=== PATIENT | female | born 1995 | race Caucasian/White ===

== ENCOUNTER 2017-08-23 14:09 | Emergency (ER) | payer OTHER ==
[~2017-08-23] VITALS: Ht 160 cm; Wt 56.7 kg
[~2017-08-23 14:09] MED LIST: ELINEST1 EACH PO; MULTIVITAMINS1 EAC7 PO; TESSALON PERLE100 MG PO
--- OUTSIDE RECORDS SUMMARY | 2017-08-23 14:41 | XMS | Clinical Summary ---
Demographics + + + | Address | [address] | | | [place] [address] | + + + | Home Phone | | + + + | Preferred Language | Unknown | + + + | Marital Status | Single | + + + | Latter Day Affiliation | Unknown | + + + | Race | Unknown | + + + | Ethnic Group | Unknown | + + + Author + + + | Author | [facility] | | | and [place] | + + + | Organization | [facility] | | | and [place] | + + + | Address | Unknown | + + + | Phone | Unavailable | + + + Support + + + + + | Name | Relationship | Address | Phone | + + + + + | Renu Briceno | ECON | [address] | | | | | [place] | | | | | [address] | | + + + + + Care Team Providers + +------+ + | Care Die Lay Out Worker Name | Role | Phone | + +------+ + | Eduard Rockwell MD | PP | | + +------+ + Allergies + + + +--------+ + | Active Allergy | Reactions | Severity | Noted | Comments | | | | | Date | | + + + +--------+ + | Amoxicillin | Rash | Low | | | + + + +--------+ + | Penicillins | Rash | Low | | | + + + +--------+ + Current Medications + + + +---------+------+------+-------+ | Prescription | Sig. | Disp. | Refills | Star | End | Statu | | | | | | t | Date | s | | | | | | Date | | | + + + +---------+------+------+-------+ | busPIRone (BUSPAR) | take 1 tablet by | | 0 | 02/0 | | Activ | | 5 mg tablet | mouth twice a day | | | 8/20 | | e | | | once daily for 1 | | | 18 | | | | | week - IF LIT... | | | | | | | | (REFER TO | | | | | | | | PRESCRIPTION NOTES). | | | | | | + + + +---------+------+------+-------+ | | Take 1 tablet by | 84 each | 3 | 02/1 | | Activ | | levonorgestrel-ethin | mouth Daily. 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 | abdominal pain | | | | | | (Primary Dx) | +--------+ + + + + | 07/12/ | Office | | Carol, | Patient left after | | 2018 | Visit | | SHADI Gutierrez | triage (Primary Dx) | +--------+ + + + + | 07/12/ | Telephone | | Arin Franks, | Appointment Question | | 2017 | | | GEOPHYSICAL 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 CHIEF | | +--------+ + + + + | 06/28/ | Office | | Brenna, | Encounter for other | | 2017 | Visit | | Jenn Fonseca NP | contraceptive | | | | | | management (Primary | | | | | | Dx) | +--------+ + + + + | 05/30/ | Telephone | | Eduard Rockwell | Follow-up | | 2017 | | | MD Andrae | | +--------+ + + + + | 05/28/ | Emergency | | Randy Mcneal, | Acute non-recurrent | | 2017 | | | ARCHITECTURE CONSULTANT | maxillary sinusitis | | | | | | (Primary Dx); Viral | | | | | | gastroenteritis | +--------+ + + + + | 05/25/ | Office | | Carol, | Viral | | 2018 | Visit | | Matt BONE PLANT SUPERVISOR | gastroenteritis | | | | | | (Primary Dx); Viral | | | | | | URI | +--------+ + + + + from Last 3 Months Family History + + +------+ + | Medical History | Relation | Name | Comments | + + +------+ + | No Known Problems | Father | | | + + +------+ + | Cancer | Maternal | | Skin Cancer | | | Grandfath | | | | | er | | | + + +------+ + | No Known Problems | Maternal | | | | | Grandmoth | | | | | er | | | + + +------+ + | No Known Problems | Mother | | | + + +------+ + | No Known Problems | Paternal | | | | | Grandfath | | | | | er | | | + + +------+ + | No Known Problems | Paternal | | | | | Grandmoth | | | | | er | | | + + +------+ + | No Known Problems | Paternal | | | | | Uncle | | | + + +------+ + | No Known Problems | Sister | | | + + +------+ + + +------+--------+ + | Relation | Name | Status | Comments | + +------+--------+ + | Father | | Alive | | + +------+--------+ + | Maternal Grandfather | | Alive | | + +------+--------+ + | Maternal Grandmother | | Alive | | + +------+--------+ + | Mother | | Alive | | + +------+--------+ + | Paternal Grandfather | | Alive | | + +------+--------+ + | Paternal Grandmother | | Alive | | + +------+--------+ + | Paternal Uncle | | Alive | | + +------+--------+ + | Sister | | Alive | | + +------+--------+ + Social History + +-------+ +--------+------+ | Tobacco Use | Types | Packs/Day | Years | Date | | | | | Used | | + +-------+ +--------+------+ | Never Smoker | | | | | + +-------+ +--------+------+ + +---+---+---+ | Smokeless Tobacco: | | | | | Never Used | | | | + +---+---+---+ + + | Tobacco Cessation: Counseling Given: No | + + + + +---------+ + | Alcohol Use | Drinks/We | oz/Week | Comments | | | ek | | | + + +---------+ + | No | | | | + + +---------+ + + + + | Sex Assigned at | Date Recorded | | | | + + + | Not on file | | + + + Last Filed Vital Signs + + + + | Vital Sign | Reading | Time Taken | + + + + | Blood Pressure | 98/45 | 07/12/20171418 PST | + + + + | Pulse | 82 | 07/12/20171417 PST | + + + + | Temperature | 36.6 C (97.9 F) | 07/12/20175 PST | + + + + | Respiratory Rate | 18 | 07/12/20171035 PST | + + + + | Oxygen Saturation | 83% | 07/12/20171417 PST | + + + + | Inhaled Oxygen | - | - | | Concentration | | | + + + + | Weight | 56.7 kg (125 lb) | 07/12/20171035 PST | + + + + | Height | 160 cm (5' 3") | 07/12/20171035 PST | + + + + | Body Mass Index | 22.14 | 07/12/20171035 PST | + + + + Plan of Treatment + + + + + | Health Maintenance | Due Date | Last Done | Comments | + + + + + | Vaccine: HPV (1 of 3 | | | | | - Female 3 Dose | 8 | | | | Series) | | | | + + + + + | Vaccine: | | | | | Dtap/Tdap/Td (1 - | 6 | | | | Tdap) | | | | + + + + + | Vaccine: Influenza | | | | | (Season Ended) | 8 | | | + + + + + Results US Abdomen Limited (07/12/2017 1331) + + | Impressions | + + | IMPRESSION: The appendix is not identified. Acute process involving the appendix | | cannot be excluded. Dictated by: Gurdeep Vargas | + + + + | Narrative | + + | EXAMINATION: US ABDOMEN LIMITED right lower quadrant HISTORY: ABDOMINAL PAIN | | COMPARISON STUDY: None FINDINGS: An appendix is not identified. No right lower | | quadrant adenopathy is demonstrated. No fluid collections right lower quadrant | + + + + | Procedure Note | + + | Harlan, Rad Results In - 07/12/2017 1404 PST EXAMINATION:US ABDOMEN LIMITED right lower | | quadrantHISTORY:ABDOMINAL PAINCOMPARISON STUDY:NoneFINDINGS:An appendix is not | | identified. No right lower quadrant adenopathy is demonstrated. No fluid collections | | right lower quadrantIMPRESSION: IMPRESSION:The appendix is not identified. Acute | | process involving the appendix cannot be excluded.Dictated by: Gurdeep | | Sam | |COMPARISON STUDY: | |None | | | |FINDINGS: | |An appendix is not identified. No right lower quadrant adenopathy is demonstrated. No flu id collections right lower quadrant | | | |IMPRESSION: | |IMPRESSION: | |The appendix is not identified. Acute process involving the appendix cannot be excluded. | | | |Dictated by: Gurdeep Vargas | | | | | + + Urinalysis with Microscopic with Culture if Indicated (07/12/2017 1142) + + + + | Component | Value | Ref Range | + + + + | COLOR | Yellow | Pale Yellow, Yellow | + + + + | CLARITY | Clear | Clear | + + + + | PH UA | 6.5 | 5.0 - 7.0 | + + + + | Specific [place] | 1.015 | 1.003 - 1.030 | + + + + | PROTEIN UA | Negative | Negative | + + + + | BLOOD UA | 50 colton/uL (A) | Negative | + + + + | GLUCOSE UA | Normal | Normal | + + + + | KETONES UA | Negative | Negative | + + + + | BILIRUBIN UA | Negative | Negative | + + + + | NITRITE UA | Negative | Negative | + + + + | LEUKOCYTES ESTERASE | Negative | Negative | | UA | | | + + + + | UROBILINOGEN UA | Normal | 0-1.0 mg/dL | + + + + | WBC UA | 0-2 | <=5 /HPF | + + + + | RBC UA | None Seen | <=5 /HPF | + + + + | SQUAMOUS EPITHELIAL | Few (A) | None Seen /LPF | | UA | | | + + + + | BACTERIA UA | Trace (A) | None Seen /HPF | + + + + | MUCUS UA | Few (A) | None seen /LPF | + + + + | URINE COMMENT | Urine Culture Not Indicated | | + + + + + + + | Specimen | Performing Laboratory | + + + | Urine - Urine, clean | [facility] [address] [facility], | | catch | [place] [id number] | + + + , Urine, Qual (07/12/2017 1142) + + + + | Component | Value | Ref Range | + + + + | HCG SCREEN, URINE | Negative | Negative | + + + + + + + | Specimen | Performing Laboratory | + + + | Urine - Urine, clean | [facility] [address] [facility] | | catch | [place] [id number] | + + + CBC with Differential (07/12/20171119) + + + + | Component | Value | Ref Range | + + + + | WBC | 4.6 | 4.3 - 10.4 K/uL | + + + + | RBC | 4.60 | 4.12 - 5.30 M/uL | + + + + | Hgb | 12.7 | 12.4 - 15.7 g/dL | + + + + | Hct | 39.1 | 37.7 - 47.0 % | + + + + | MCV | 85.0 | 82.0 - 97.0 fL | + + + + | MCH | 27.6 | 27.1 - 32.3 pg | + + + + | MCHC | 32.5 | 32.0 - 36.9 g/dL | + + + + | RDW-CV | 13.2 | 0.0 - 17.0 % | + + + + | Platelet Count | 341 | 150 - 450 K/uL | + + + + | MPV | 10.6 | 9.4 - 12.3 fL | + + + + | % Neutrophils | 46.6 | 42.0 - 76.0 % | + + + + | % Lymphocytes | 37.4 | 20.0 - 40.0 % | + + + + | % Monocytes | 9.1 | 0.0 - 12.0 % | + + + + | % Eosinophils | 5.4 | 0.0 - 7.0 % | + + + + | % Basophils | 1.5 | 0.0 - 2.0 % | + + + + | % Immature | 0.0 | 0.0 - 0.5 % | | granulocytes | | | + + + + | Absolute Neutrophils | 2.14 (L) | 2.50 - 8.50 K/uL | + + + + | Absolute Lymphocytes | 1.72 | 1.00 - 3.80 K/uL | + + + + | Absolute Monocytes | 0.42 | 0.00 - 1.60 K/uL | + + + + | Absolute Eosinophils | 0.25 | 0.00 - 0.70 K/uL | + + + + | Absolute Basophils | 0.07 | 0.00 - 0.20 K/uL | + + + + | Absolute Imm. | 0.00 | 0.00 - 0.15 K/UL | | Granulocytes | | | + + + + | nRBC | 0 | 0 - 0 per 100 WBC's | + + + + | NRBC ABS | 0.00 | 0.00 - 0.01 K/UL | + + + + + + + | Specimen | Performing Laboratory | + + + | Blood | [facility] [address] [place], | | | [place] [address] | + + + Lipase (07/12/2017 1120) + +-------+ + | Component | Value | Ref Range | + +-------+ + | LIPASE | 187 | 73 - 393 U/L | + +-------+ + + + + | Specimen | Performing Laboratory | + + + | Blood | [facility] [address] [place], | | | [place] [address] | + + + Comprehensive Metabolic Panel (07/12/2017 1120) + + + + | Component | Value | Ref Range | + + + + | NA | 141 | 132 - 143 mmol/L | + + + + | K | 3.7 | 3.3 - 4.9 mmol/L | + + + + | CL | 106 | 95 - 108 mmol/L | + + + + | CO2 | 26 | 23 - 34 mmol/L | + + + + | ANION GAP | 9 | 7 - 16 mmol/L | + + + + | GLUCOSE | 84 | 70 - 110 mg/dL | + + + + | BUN | 16 | 5 - 26 mg/dL | + + + + | Creatinine, | 0.62 | 0.60 - 1.30 mg/dL | | Serum/Plasma | | | + + + + | eGFR if not | >60Comment: GLOMERULAR FILTRATION | >=60 mL/min/1.73m2 | | THAI | RATE,ESTIMATED mL/min/1.85l4Kqig than | | | | 60 Chronic kidney disease,if found over | | | | a 3-month period.Less than 15 Kidney | | | | failureFor Americans,multiply the | | | | calculated GFR by 1.21. | | | | | | | | | | + + + + | CALCIUM | 8.4 | 8.3 - 10.0 mg/dL | + + + + | ALBUMIN | 3.2 | 3.0 - 4.5 g/dL | + + + + | BILIRUBIN TOTAL | 0.3 | 0.0 - 1.2 mg/dL | + + + + | Total protein | 7.0 | 6.6 - 8.5 g/dL | + + + + | AST | 18 | 0 - 38 U/L | + + + + | ALT | 22 | 14 - 59 U/L | + + + + | ALK PHOS | 80 | 46 - 116 U/L | + + + + | GLOBULIN | 3.8 | g/dL | + + + + | Albumin/Globulin | 0.8 | | | ratio | | | + + + + | BUN/CREA | 25.8 (H) | 7.0 - 24.0 | + + + + + + + | Specimen | Performing Laboratory | + + + | Blood | [facility] [address] [place], | | | [place] [address] | + + + from Last 3 Months Insurance + +--------+ +------+ +---------+ | Payer | Benefi | Subscriber | Type | Phone | Address | | | t Plan | ID | | | | | | / | | | | | | | Group | | | | | + +--------+ +------+ +---------+ | [employer] | PACIFI | xxxxxxxxxxx | PPO | [phone] | | | CSOURC | | | [phone] | | | | E | | | | | | | FIRST | | | | | | | CHOICE | | | | | + +--------+ +------+ +---------+ + +--------+ +--------+ + + | Guarantor Name | Accoun | Relation to | Date | Phone | Billing Address | | | t Type | Patient | of | | | | | | | | | | + +--------+ +--------+ + + | FABRICE BRICENO | Person | Self [birth year] | Home: | [address] | | | [place] | | 1994 | [phone] | [place] [address] | | | joselo | | | [phone] | | + +--------+ +--------+ + +
--- OUTSIDE RECORDS SUMMARY | 2017-08-23 14:41 | XMS | Encounter Summary ---
Demographics + + + | Address | [address] | | | [place] [address] | + + + | Home Phone | | + + + | Preferred Language | Unknown | + + + | Marital Status | Single | + + + | Presybeterian Affiliation | Unknown | + + + | Race | Unknown | + + + | Ethnic Group | Unknown | + + + Author + + + | Author | [facility] | | | and [place] | + + + | Organization | [facility] | | | and [place] | + + + | Address | Unknown | + + + | Phone | Unavailable | + + + Support + + + + + | Name | Relationship | Address | Phone | + + + + + | Renu Benoit | ECON | [address] | | | | | [place] | | | | | [address] | | + + + + + Care Team Providers + +------+ + | Care Office Technician Name | Role | Phone | + +------+ + | Eduard Rockwell MD | PCP | | + +------+ + Reason for Visit + + + | Reason | Comments | + + + | Appointment Question | | + + + Encounter Details +--------+ + + + + | Date | Type | Department | Care Team | Description | +--------+ + + + + | 07/12/ | Telephone | [facility] | Arin Franks, | Appointment Question | | 2018 | | [facility] | 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 | | | | | CENTER [address] | | | | | | [place] | | | | | | [address] | | | | | | [phone] | | | +--------+ + + + + Social History + +-------+ +--------+------+ | Tobacco Use | Types | Packs/Day | Years | Date | | | | | Used | | + +-------+ +--------+------+ | Never Smoker | | | | | + +-------+ +--------+------+ + +---+---+---+ | Smokeless Tobacco: | | | | | Never Used | | | | + +---+---+---+ + + +---------+ + | Alcohol Use | Drinks/We | oz/Week | Comments | | | ek | | | + + +---------+ + | No | | | | + + +---------+ + + + + | Sex Assigned at | Date Recorded | | | | + + + | Not on file | | + + + as of this encounter Plan of Treatment Not on fileas of this encounter Visit Diagnoses Not on filein this encounter"
--- OUTSIDE RECORDS SUMMARY | 2017-08-23 14:50 | XMS | Encounter Summary ---
Demographics + + + | Address | [address] | | | [place] [address] | + + + | Home Phone | | + + + | Preferred Language | Unknown | + + + | Marital Status | Single | + + + | Voodoo Affiliation | Unknown | + + + | Race | Unknown | + + + | Ethnic Group | Unknown | + + + Author + + + | Author | [facility] | | | and [place] | + + + | Organization | [facility] | | | and [place] | + + + | Address | Unknown | + + + | Phone | Unavailable | + + + Support + + + + + | Name | Relationship | Address | Phone | + + + + + | Renu Benoit | ECON | [address] | | | | | [place] | | | | | [address] | | + + + + + Care Team Providers + +------+ + | Care Counter Waiter Name | Role | Phone | + +------+ + | Eduard Rockwell MD | PCP | | + +------+ + Reason for Visit + + + | Reason | Comments | + + + | Abdominal Pain | | + + + Encounter Details +--------+ + + + + | Date | Type | Department | Care Team | Description | +--------+ + + + + | 07/12/ | Emergency | [facility] | Randy Mcneal, | Right lower quadrant | | 2018 | | HOSPITAL [facility] | EXTRUSION UTILITY WORKER [address] | abdominal pain | | | | CENTER [address] | [place] | (Primary Dx) | | | | [place] | [address] | | | | | [address] | | | | | | [phone] | | | +--------+ + + + [...] + + + as of this encounter Last Filed Vital Signs + + + + | Vital Sign | Reading | Time Taken | + + + + | Blood Pressure | 98/45 | 07/12/2017 1419 PST | + + + + | Pulse | 82 | 07/12/2017 1418 PST | + + + + | Temperature | 36.6 C (97.9 F) | 07/12/2017 1445 PST | + + + + | Respiratory Rate | 18 | 07/12/2017 1036 PST | + + + + | Oxygen Saturation | 83% | 07/12/2017 1418 PST | + + + + | Inhaled Oxygen | - | - | | Concentration | | | + + + + | Weight | 56.7 kg (125 lb) | 07/12/2017 1036 PST | + + + + | Height | 160 cm (5' 3") | 07/12/2017 1036 PST | + + + + | Body Mass Index | 22.14 | 07/12/2017 1036 PST | + + + + in this encounter Discharge Instructions Randy Mcneal NP - 07/12/2017Follow-up with your primary care provider in 1-2 days if n o improvement over next week. . Watch your symptoms carefully over the next 2-3 days and pay special attention to new and d ifferent pains, fevers, vomiting, notice blood in your vomiting, urine or stool. If any of this should occur you should return to the emergency department immediately for re-evaluatio n. The following attachments cannot be sent through Care Everywhere.Abdominal Pain, Adult (Eng eloise)in this encounter Medications at Time of Discharge + + + +---------+ + + | Medication | Sig. | Disp. | Refills | Start | End Date | | | | | | Date | | + + + +---------+ + + | busPIRone (BUSPAR) | take 1 tablet by | | 0 | 06/24/19 | | | 5 mg tablet | mouth twice a day | | | 18 | | | | once daily for 1 | | | | | | | week - IF LIT... | | | | | | | (REFER TO | | | | | | | PRESCRIPTION NOTES). | | | | | + + + +---------+ + + | | Take 1 tablet by | 84 each | 3 | 06/28/19 | | | levonorgestrel-ethin | mouth Daily. | | | 18 | | | yl estradiol | | | | | | | (SEASONIQUE) | | | | | | | 0.15-0.03 &0.01 MG | | | | | | | TABS | | | | | | + + + +---------+ + + as of this encounter Plan of Treatment Not on fileas of this encounter Results US Abdomen Limited (07/12/2017 1331) + [...] | | | | | + + , Urine, Qual (07/12/2017 1142) + + + + | Component | Value | Ref Range | + + + + | HCG SCREEN, URINE | Negative | Negative | + + + + + + + | Specimen | Performing Laboratory | + + + | Urine - Urine, clean | [facility] [address] [facility] [place], | | catch | [place] [address] | + + + Urinalysis with Microscopic with Culture [...] | + + + + | Specific [place] | 1.015 | 1.003 - 1.030 | [...] + | Urine - Urine, clean | [facility] [address] [facility] [facility] [facility] | | catch | [place] [address] | + + + Lipase (07/12/20171119) + +-------+ + | Component | Value | Ref Range | + +-------+ + | LIPASE | 187 | 73 - 393 U/L | + +-------+ + + + + | Specimen | Performing Laboratory | + + + | Blood | [facility] [address] [place], | | | [place] [address] | + + + Comprehensive Metabolic Panel [...] GLOMERULAR FILTRATION | >=60 mL/min/1.73m2 | | [place] | RATE,ESTIMATED mL/min/1.12e7Fgbo than | | | | 60 Chronic [...] | + + + | Blood | [facility] [address] [facility] | | | [place] [address] | + + + CBC with Differential [...] | + + + | Blood | [facility] [address] [place], | | | [place] [address] | + + + in this encounter Visit Diagnoses + + | Diagnosis | + + | Right lower quadrant abdominal pain - Primary | + + | Abdominal pain, right lower quadrant | + +
--- OUTSIDE RECORDS SUMMARY | 2017-08-23 14:50 | XMS | Encounter Summary ---
Demographics + + + | Address | [address] | | | [place] [address] | + + + | Home Phone | | + + + | Preferred Language | Unknown | + + + | Marital Status | Single | + + + | Judaism Affiliation | Unknown | + + + | Race | Unknown | + + + | Ethnic Group | Unknown | + + + Author + + + | Author | [facility] | | | and [place] | + + + | Organization | [facility] | | | and [place] | + + + | Address | Unknown | + + + | Phone | Unavailable | + + + Support + + + + + | Name | Relationship | Address | Phone | + + + + + | Renu Benoit | ECON | [address] | | | | | [place] | | | | | [address] | | + + + + + Care Team Providers + +------+ + | Care Salesperson Flying Squad Name | Role | Phone | + [...] | 2018 | | HOSPITAL EM[facility] | PRINTED CIRCUIT DESIGNER | | | | | CENTER [address] | | | | | | [place] | | | | | | [address] | | | | | | [phone] | | | +--------+ + + + [...]
--- OUTSIDE RECORDS SUMMARY | 2017-08-23 14:50 | XMS | Encounter Summary ---
Demographics + + + | Address | [address] | | | [place] [address] | + + + | Home Phone | | + + + | Preferred Language | Unknown | + + + | Marital Status | Single | + + + | Oriental Orthodox Affiliation | Unknown | + + + | Race | Unknown | + + + | Ethnic Group | Unknown | + + + Author + + + | Author | [facility] | | | and [place] | + + + | Organization | [facility] | | | and [place] | + + + | Address | Unknown | + + + | Phone | Unavailable | + + + Support + + + + + | Name | Relationship | Address | Phone | + + + + + | Renu Benoit | ECON | [address] | | | | | [place] | | | | | [address] | | + + + + + Care Team Providers + +------+ + | Care Manual Arts Therapist Name | Role | Phone | + +------+ + | Unknown, Doctor | PCP | Unavailable | + +------+ + Reason for Visit + + + | Reason | Comments | + + + | Abdominal Pain | x1wk | + + + Encounter Details +--------+---------+ + + + | Date | Type | Department | Care Team | Description | +--------+---------+ + + + | 05/25/ | Office | [facility] | Carol, | Viral | | 2018 | Visit | [facility] | Matt, 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 [address] | gastroenteritis | | | | [facility] | [address] [facility], | (Primary Dx); Viral | | | | [address] [facility], | [place] [address] | URI | | | | [place] [address] | [phone] | | | | | [phone] | | | +--------+---------+ + + + Social History + +-------+ +--------+------+ | Tobacco Use | Types | Packs/Day | Years | Date | | | | | Used | | + +-------+ +--------+------+ | Never Smoker | | | | | + +-------+ +--------+------+ + +---+---+---+ | Smokeless Tobacco: | | | | | Never Used | | | | + +---+---+---+ + + + | Sex Assigned at | Date Recorded | | | | + + + | Not on file | | + + + as of this encounter Last Filed Vital Signs + + + + | Vital Sign | Reading | Time Taken | + + + + | Blood Pressure | 101/62 | 05/25/20171540 PST | + + + + | Pulse | 81 | 05/25/20171540 PST | + + + + | Temperature | 36.3 C (97.3 F) | 05/25/20171540 PST | + + + + | Respiratory Rate | 16 | 05/25/20171540 PST | + + + + | Oxygen Saturation | 98% | 05/25/20171540 PST | + + + + | Inhaled Oxygen | - | - | | Concentration | | | + + + + | Weight | - | - | + + + + | Height | - | - | + + + + | Body Mass Index | - | - | + + + + in this encounter Instructions Patient Instructions - Matt Medina FNP - 05/25/2017 1530 PST Viral Gastroenteritis (Adult) Gastroenteritis is commonly called the stomach flu. It is most often caused by a virus that affects the stomach and intestinal tract and usually lasts from 2 to 7 days. Common viruses causing gastroenteritis include norovirus, rotavirus, and hepatitis A. Non-viral causes of gastroenteritis include bacteria, parasites, and toxins. The danger from repeated vomiting or diarrhea is dehydration. This is the loss of toomuch fluid from the body. When this occurs, body fluids must be replaced. Antibiotics do not hel p with this illness because it is usually viral.Simple home treatment will be helpful. Symptoms of viral gastroenteritis may include: Watery, loose stools Stomach pain or abdominal cramps Fever and chills Nausea and vomiting Loss of bowel control Headache Home care Gastroenteritis is transmitted by contact with the stool or vomit of an infected person. Th is can occur from person to person or from contact with a contaminated surface. Follow these guidelines when caring for yourself at home: If symptoms are severe, rest at home for the next 24 hours or until you are feeling bett er. Wash your hands with soap and water or use alcohol-based collaborating supervising physician to prevent the spread of infection. Wash your hands after touching anyone who is sick. Wash your hands or use alcohol-based collaborating supervising physician after using the toilet and before meals. Clean the toilet after each use. Remember these tips when preparing food: People with diarrhea should not prepare or serve foodto others. When preparing foods, wash your hands before and after. Wash your hands after using cutting boards, countertops, knives, or utensilsthat have been in contact with raw food. Keep uncooked meats away from cooked and ghpyz-zw-jte foods. Medicine You may use acetaminophen or NSAID medicines like ibuprofen or naproxen to control fever un less another medicine was given. If you have chronic liver or kidney disease, talk with your healthcare provider before using these medicines. Also talk with your provider if you'veh ad a stomach ulcer orgastrointestinal bleeding. Don't give aspirinto anyone under 18 yea rs of age who is ill with a fever. It may cause severe liver damage. Don't use NSAIDS is you are already taking one for another condition (like arthritis) or are on aspirin (such as fo r heart disease or after a stroke). If medicine for vomiting or diarrhea are prescribed, take these only as directed. Do not ta ke qnuf-mni-ksfjhgs medicines for vomiting or diarrhea unless instructed by your healthcare provider. Diet Follow these guidelines forfood: Water and liquids are important so you don't get dehydrated. Drink a small amount at a t edwina or suck on ice chips if you are vomiting. If you eat, avoid fatty, greasy, spicy, or fried foods. Don't eat dairy if you have diarrhea. This can make diarrhea worse. Avoid tobacco, alcohol, and caffeine which may worsen symptoms. During the first 24 hours (the first full day), follow the diet below: Beverages. Sports drinks, soft drinks without caffeine, eliceo bereket, mineral water (plain or flavored), decaffeinated tea and coffee. If you are very dehydrated, sports drinks aren' t a good choice. They have too much sugar and not enough electrolytes. In this case, commerc ially available products called oral rehydration solutions, are best. Soups. Eat clear broth, consomm, and bouillon. Desserts. Eat gelatin, popsicles, and fruit juice bars. During the next 24 hours (the second day), you may add the following to the above: Hot cereal, plain toast, bread, rolls, and crackers Plain noodles, rice, mashed potatoes, chicken noodle or rice soup Unsweetened canned fruit (avoid pineapple), bananas Limit fat intake to less than 15 grams per day. Do this by avoiding margarine, butter, o ils, mayonnaise, sauces, gravies, fried foods, peanut butter, meat, poultry, and fish. Limit fiber and avoid raw or cooked vegetables, fresh fruits (except bananas), and bran cereals. Limit caffeine and chocolate. Don't use spices or seasonings other than salt. Limit dairy products. Avoid alcohol. During the next 24 hours: Gradually resume a normal diet as you feel better and your symptoms improve. If at any time it starts getting worse again, go back to clear liquids until you feel be tter. Follow-up care Follow up with your healthcare providerjeffrey advised. Call your provider if you don't ge t better within 24 hours or if diarrhea lasts more than a week. Also follow up if you are un able to keep down liquids and get dehydrated. If a stool (diarrhea) sample was taken, call a s directed for the results. Call 911 Call 911 if any of these occur: Trouble breathing Chest pain Confused Severe drowsiness or trouble awakening Fainting or loss of consciousness Rapid heart rate Seizure Stiff neck When to seek medical advice Call your healthcare provider right away if any of these occur: Abdominal pain that gets worse Continued vomiting (unable to keep liquids down) Frequent diarrhea (more than 5 times a day) Blood in vomit or stool (black or red color) Dark urine, reduced urine output, or extreme thirst Weakness or dizziness Drowsiness Fever of 100.4F (38C) oral or higher that does not get better with fever medicine New rash Date Last Reviewed: 05/19/201519992056-7917 [employer]. [address] [place] [address]. All righ ts reserved. This information is not intended as a substitute for professional medical care. Always follow your healthcare professional's instructions. in this encounter Progress Notes Matt Medina, SHADI - 05/25/2017 1530 PSTFormatting of this note may be different from the original. Subjective: Patient ID: Michelle Benoit is a 22 y.o. female. GI Problem This is a new problem. The current episode started in the past 7 days. The problem occurs c onstantly. The problem has been waxing and waning. Associated symptoms include abdominal fransico n (cramping sensation), congestion, coughing, fatigue, headaches, nausea (intermittently) an d a sore throat (in the morning). Pertinent negatives include no anorexia, arthralgias, osman ge in bowel habit, chest pain, chills, diaphoresis, fever, joint swelling, myalgias, neck pa in, numbness, rash, swollen glands, urinary symptoms, vertigo, visual change, vomiting or we akness. Nothing aggravates the symptoms. She has tried NSAIDs (antihistamines, ibuprofen, te a) for the symptoms. The treatment provided mild relief. No past medical history on file. There are no active problems to display for this patient. No past surgical history on file. Current Outpatient Prescriptions Medication Sig Dispense Refill CAMRESE LO 0.1-0.02 & 0.01 MG TABS Take 1 tablet by mouth Daily. 0 No current facility-administered medications for this visit. Allergies Allergen Reactions Amoxicillin Rash Penicillins Rash Review of Systems Constitutional: Positive for fatigue. Negative for chills, diaphoresis and fever. HENT: Positive for congestion, postnasal drip, rhinorrhea, sinus pain, sinus pressure and s ore throat (in the morning). Eyes: Negative. Respiratory: Positive for cough. Cardiovascular: Negative. Negative for chest pain. Gastrointestinal: Positive for abdominal pain (cramping sensation) and nausea (intermittent ly). Negative for abdominal distention, anal bleeding, anorexia, blood in stool, change in b owel habit, constipation, diarrhea, rectal pain and vomiting. Endocrine: Negative. Genitourinary: Negative. Musculoskeletal: Negative. Negative for arthralgias, joint swelling, myalgias and neck fransico n. Skin: Negative. Negative for rash. Allergic/Immunologic: Negative. Neurological: Positive for headaches. Negative for vertigo, weakness and numbness. Hematological: Negative. Psychiatric/Behavioral: Negative. Objective: BP 101/62 | Pulse 81 | Temp 36.3 C (97.3 F) (Temporal) | Resp 16 | SpO2 98% | Destiny stfeeding? No Physical Exam Constitutional: Vital signs are normal. She is cooperative. HENT: Right Ear: Tympanic membrane and ear canal normal. Left Ear: Tympanic membrane and ear canal normal. Nose: Mucosal edema and rhinorrhea (clear) present. Mouth/Throat: Oropharynx is clear and moist. No posterior oropharyngeal erythema. Cardiovascular: Normal rate and regular rhythm. Pulmonary/Chest: Effort normal and breath sounds normal. Abdominal: Soft. Normal appearance. She exhibits no shifting dullness, no distension, no pu lsatile liver, no fluid wave, no abdominal bruit, no ascites, no pulsatile midline mass and no mass. Bowel sounds are increased. There is no hepatosplenomegaly. There is generalized te nderness. There is no rigidity, no rebound, no guarding, no CVA tenderness, no tenderness at McBurney's point and negative Merritt's sign. No hernia. Lymphadenopathy: She has no cervical adenopathy. Neurological: She is alert. Psychiatric: She has a normal mood and affect. Her speech is normal and behavior is normal. Assessment: ICD-10-CM ICD-9-CM 1. Viral gastroenteritis A08.4 008.8 2. Viral URI J06.9 465.9 B97.89 Plan: Discussed that the symptoms are consistent with a viral illness and that viruses do not res pond to antibiotics. Discussed the typical course of the illness and when to return for add unc health care. Patient verbalized understanding of the teaching. Discussed dietary modifications that can help with her symptoms. Encouraged supportive care: Increase PO intake of fluids, warm fluids and honey, PRN OTC c old medications, Ibuprofen/Tylenol as needed for pain/fever. Salt water gargling, chlorasep tic spray and throat lozenges PRN for sore throat. Antihistamine PRN to help dry secretions . Nasal saline spray or Neti Pot PRN. Follow up PRN if symptoms worsen or do not improve. in this encounter Plan of Treatment Not on fileas of this encounter Visit Diagnoses + + | Diagnosis | + + | Viral gastroenteritis - Primary | + + | Intestinal infection due to other organism, not elsewhere classified | + + | Viral URI | + + | Acute upper respiratory infections of unspecified site | + +"
--- OUTSIDE RECORDS SUMMARY | 2017-08-23 14:50 | XMS | Clinical Summary ---
Demographics + + + | Address | [address] | | | [place] [address] | + + + | Home Phone | | + + + | Preferred Language | Unknown | + + + | Marital Status | Single | + + + | Orthodox Affiliation | Unknown | + + + | Race | Unknown | + + + | Ethnic Group | Unknown | + + + Author + + + | Author | [facility] | | | and [place] | + + + | Organization | [facility] | | | and [place] | + + + | Address | Unknown | + + + | Phone | Unavailable | + + + Support + + + + + | Name | Relationship | Address | Phone | + + + + + | Renu Briceno | ECON | [address] | | | | | [place] | | | | | [address] | | + + + + + Care Team Providers + +------+ + | Care Blister Packing Machine Tender Name | Role | Phone | + [...] quadrant | | 2018 | | | SUPERVISOR [employer]IPMENT | abdominal pain | | | | [...] Question | | 2017 | | | INSTITUTIONAL NUTRITION CONSULTANT | | +--------+ + + + + [...] non-recurrent | | 2017 | | | SUPERVISOR [employer] EQUIPMENT | maxillary sinusitis | | | | | | (Primary Dx); Viral | | | | | | gastroenteritis | +--------+ + + + + | 05/25/ | Office | | Carol, | Viral | | 2018 | Visit | | Matt SUPERVISOR [employer] | gastroenteritis | | | | | [...] | + + + + | Specific Petty | 1.015 | 1.003 - 1.030 | [...] + | Urine - Urine, clean | [facility] [address] [facility], | | catch | [place] [address] | + + + , Urine, Qual (07/12/2017 1142) + + + + | Component | Value | Ref Range | + + + + | HCG SCREEN, URINE | Negative | Negative | + + + + + + + | Specimen | Performing Laboratory | + + + | Urine - Urine, clean | [facility] [address] [facility], | | catch | [place] [address] | + + + CBC with Differential [...] | + + + | Blood | [facility] [address] [place], | | | [place] [address] | + + + Lipase (07/12/2017 1120) + +-------+ + | Component | Value | Ref Range | + +-------+ + | LIPASE | 187 | 73 - 393 U/L | + +-------+ + + + + | Specimen | Performing Laboratory | + + + | Blood | [facility] [address] [place], | | | [place] [address] | + + + Comprehensive Metabolic Panel [...] GLOMERULAR FILTRATION | >=60 mL/min/1.73m2 | | MARTINIQUAIS | RATE,ESTIMATED mL/min/1.56b3Nfue than | | | | 60 Chronic [...] | + + + | Blood | [facility] [address] [place], | | | [place] [address] | + + + from Last 3 [...] | PACIFI | [phone] | PPO | [phone] | | | | CSOURC | | [...] Self | [birth year] | Home: | [address] | | | al/Nba | | 1994 | [phone] | [place] [address] | | | joselo | | | [phone] | | + +--------+ +--------+ + +
--- OUTSIDE RECORDS SUMMARY | 2017-08-23 14:50 | XMS | Encounter Summary ---
Demographics + + + | Address | [address] | | | [place] [address] | + + + | Home Phone | | + + + | Preferred Language | Unknown | + + + | Marital Status | Single | + + + | Denominational Affiliation | Unknown | + + + | Race | Unknown | + + + | Ethnic Group | Unknown | + + + Author + + + | Author | [facility] | | | and [place] | + + + | Organization | [facility] | | | and [place] | + + + | Address | Unknown | + + + | Phone | Unavailable | + + + Support + + + + + | Name | Relationship | Address | Phone | + + + + + | Renu Benoit | ECON | [address] | | | | | [place] | | | | | [address] | | + + + + + Care Team Providers + +------+ + | Care County Agent Name | Role | Phone | + +------+ + | Eduard Rockwell MD | PCP | | + +------+ + Encounter Details +--------+---------+ + + + | Date | Type | Department | Care Team | Description | +--------+---------+ + + + | 07/12/ | Office | [facility] | Carol | Patient left after | | 2018 | Visit | [facility] | [facility] [address] | triage (Primary Dx) | | | | [facility] [address] | [address] [place], | | | | | [address] [place], | [place] [address] | | | | | [place] [address] | [phone] | | | | | [phone] | | | +--------+---------+ + + + [...] + + + | Blood Pressure | - | - | + + + + | Pulse | 80 | 07/12/20171004 PST | + + + + | Temperature | 36.5 C (97.7 F) | 07/12/20171004 PST | + + + + | Respiratory Rate | 18 | 07/12/20171004 PST | + + + + | Oxygen Saturation | 100% | 07/12/20171004 PST | + + + + | Inhaled Oxygen | - | - | | Concentration | | | + + + + | Weight | - | - | + + + + | Height | - | - | + + + + | Body Mass Index | - | - | + + + + in this encounter Progress Notes Snow Goodwin, DIOGENES PERSONAL BANKING ADVISOR - 07/12/2017 0945 PSTPatient presented in walk in with concerns fo r her appendix, patient stated she had been having increasing abdominal pain. Matt mac NP was brought into room and discussed options with patient. Patient decided to go to [facility] for further evaluation. in this encounter Plan of Treatment Not on fileas of this encounter Visit Diagnoses + + | Diagnosis | + + | Patient left after triage - Primary | + +"
--- OUTSIDE RECORDS SUMMARY | 2017-08-23 14:50 | XMS | Encounter Summary ---
Demographics + + + | Address | [address] | | | [place] [address] | + + + | Home Phone | | + + + | Preferred Language | Unknown | + + + | Marital Status | Single | + + + | Hinduism Affiliation | Unknown | + + + | Race | Unknown | + + + | Ethnic Group | Unknown | + + + Author + + + | Author | [facility] | | | and [place] | + + + | Organization | [facility] | | | and [place] | + + + | Address | Unknown | + + + | Phone | Unavailable | + + + Support + + + + + | Name | Relationship | Address | Phone | + + + + + | Renu Benoit | ECON | [address] | | | | | [place] | | | | | [address] | | + + + + + Care Team Providers + +------+ + | Care Physical Fitness Teacher Name | Role | Phone | + +------+ + | Eduard Rockwell MD | PCP | | + +------+ + Encounter Details +--------+---------+ + + + | Date | Type | Department | Care Team | Description | +--------+---------+ + + + | 07/12/ | Office | [facility] | Carol | Patient left after | | 2018 | Visit | [facility] | [facility] [employer] [address] | triage (Primary Dx) | | | | [facility] [address] | [address] [place], | | | | | [address] [place], | [place] [address] | | | | | [place] [address] | [phone] | | | | | [phone] | | | +--------+---------+ + + + [...] this encounter Progress Notes Snow Goodwin, DIOGENES IT APPLICATIONS DEVELOPER - 07/12/2017 0945 PSTPatient presented in walk [...]
--- OUTSIDE RECORDS SUMMARY | 2017-08-23 14:50 | XMS | Encounter Summary ---
Demographics + + + | Address | [address] | | | [place] [address] | + + + | Home Phone | | + + + | Preferred Language | Unknown | + + + | Marital Status | Single | + + + | Yarsanism Affiliation | Unknown | + + + | Race | Unknown | + + + | Ethnic Group | Unknown | + + + Author + + + | Author | [facility] | | | and [place] | + + + | Organization | [facility] | | | and [place] | + + + | Address | Unknown | + + + | Phone | Unavailable | + + + Support + + + + + | Name | Relationship | Address | Phone | + + + + + | Renu Benoit | ECON | [address] | | | | | [place] | | | | | [address] | | + + + + + Care Team Providers + +------+ + | Care Race Engine Builder Name | Role | Phone | + +------+ + | Eduard Rockwell MD | PCP | | + +------+ + Reason for Visit + + + | Reason | Comments | + + + | Contraception | Consult | + + + Encounter Details +--------+---------+ + + + | Date | Type | Department | Care Team | Description | +--------+---------+ + + + | 06/28/ | Office | [facility] | [facility], | Encounter for other | | 2018 | Visit | [facility] | Jenn Fonseca NP [address] | contraceptive | | | | CLIN[facility] [address] | [address] | management (Primary | | | | [address] [place], | [place], [place] | Dx) | | | | [place] [address] | [address] | | | | | [phone] | | | | | | | | +--------+---------+ + + + [...] + + + | Blood Pressure | 110/63 | 06/28/20171348 PST | + + + + | Pulse | 82 | 06/28/20171348 PST | + + + + | Temperature | - | - | + + + + | Respiratory Rate | 16 | 06/28/20171348 PST | + + + + | Oxygen Saturation | - | - | + + + + | Inhaled Oxygen | - | - | | Concentration | | | + + + + | Weight | 56.2 kg (124 lb) | 06/28/2017 1349 PST | + + + + | Height | 160 cm (5' 3") | 06/28/2017 1349 PST | + + + + | Body Mass Index | 21.97 | 06/28/2017 1349 PST | + + + + in this encounter Instructions Patient Instructions - Jenn Ceja NP - 06/28/2017 1430 PST Control: The Pill control pills contain hormones that help prevent . The pills are prescribed by your healthcare provider. There are many types of control pills available. If you h ave side effects from one type of pill, tell your healthcare provider. He or she may be able to prescribe a pill that works better for you. rates Talk to your healthcare provider about the effectiveness of this control method. Using the pill Take one pill daily. Take it at around the same time each day. Follow your healthcare provider s guidelines on when to start your first pack of pills . You may need to use another form of control for a week or more after you start. Know what to do if you forget to take a pill. (Consult your healthcare provider or check the package.) If you miss more than one pill, you may need to use a backup method of control for a week or more. Pros Low rate No interruption to sex Easy to use Can help make periods more regular May lower your risk of ovarian cysts and certain cancers May decrease menstrual cramps, menstrual flow, and acne Cons Does not protect against sexually transmittedinfection (STIs) Requires taking a pill on time each day May not work as well when taken with certain other medicines (check with your pharmacist ) May cause side effects such as nausea, irregular bleeding, headaches, breast tenderness, fatigue, or mood changes (these often go away within 3 months) May increase the risk of blood clots,heart attack, and stroke The pill may not be for you The pill may not be for you if: You are a smoker and over age 35 You havehigh blood pressureor gallbladder, liver, cerebrovascular or heart disease You have diabetes, migraines, blood clot in the vein or artery, lupus, depression, certa in lipid disorders, or take medicines that interfere with the pill In these cases, discuss the risks with your healthcare provider. Date Last Reviewed: 07/15/201619993844-4907 [employer]. [address] [place] [address]. All righ ts reserved. This information is not intended as a substitute for professional medical care. Always follow your healthcare professional's instructions. New Rx sent to [facility]. Follow up annuallyin this encounter Progress Notes Jenn Ceja NP - 06/28/2017 1400 PSTFormatting of this note may be different f rom the original. Patient ID: Michelle Benoit is a 22 y.o. year old female new patient in the office tojusta bearden to establish care and for contraceptive management. 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 She d oes not believe it has been a year since she was seen Chief Complaint: Chief Complaint Patient presents with Contraception Consult Subjective: HPI- Pt is a G-0 in the office to review current contraception. She has a long history of moderate to severe dysmenorrhea. She has been on oral contracepti ves since 19 years old. She is in a monogamous relationship with her boyfriend of 5 years. They had been sexually active for 2 years. She is happy with her current method, except for spotting. She is on generic LO SEASONIQUE. She has had significant improvement in her mens trual cramps. However, she spots through most of the 3rd month on her extended dose OC and i nto her last week of pills which is estrogen only. She would not be opposed to looking at a different option. She has appreciated the improvement to her skin. Dosing is generally not an issue. Once in awhile she will forget her pills when she goes ho me for a weekend. She also uses condoms. She has had chlamydia / GC testing which was negative. She denies herself or boyfriend ever having outside partners. Allergies: Allergies Allergen Reactions Amoxicillin Rash Penicillins Rash Medications: Current Outpatient Prescriptions Medication Sig Dispense Refill busPIRone (BUSPAR) 5 mg tablet take 1 tablet by mouth twice a day once daily for 1 week - IF LIT... (REFER TO PRESCRIPTION NOTES). 0 levonorgestrel-ethinyl estradiol (SEASONIQUE) 0.15-0.03 &0.01 MG TABS Take 1 tablet by mouth Daily. 84 each 3 No current facility-administered medications for this visit. Review of Systems Constitutional: Negative for fever, malaise/fatigue and weight loss. Active in dance most of her life. Enjoys dancing almost daily Respiratory: Negative for cough, shortness of breath and wheezing. Cardiovascular: Negative for chest pain and palpitations. Gastrointestinal: Negative for abdominal pain. Genitourinary: Negative for dysuria and urgency. Musculoskeletal: Negative for myalgias. Neurological: Negative for focal weakness, seizures, loss of consciousness and headaches. Endo/Heme/Allergies: No history of bleeding or clotting disorders in pt or her family Psychiatric/Behavioral: Negative for depression and substance abuse. The patient is not ner vous/anxious. Objective: Vitals: BP 110/63 | Pulse 82 | Resp 16 | Ht 1.6 m (5' 3") | Wt 56.2 kg (124 lb) | LMP 06/13/19 18 (Exact Date) | ? No | BMI 21.97 kg/m Physical Exam Constitutional: She is oriented to person, place, and time. She appears well-developed and well-nourished. No distress. HENT: Head: Normocephalic. Eyes: EOM are normal. Neck: Neck supple. No thyromegaly present. Cardiovascular: Normal rate and intact distal pulses. No murmur heard. Pulmonary/Chest: Breath sounds normal. She has no wheezes. Small, Medium and Symmetrical breasts with good support. No distortion of breast parenchym a, skin, or nipples noted in supine position. On further examination in supine position usi ng vertical strip method, no gross masses, tenderness or axillary lymphadenopathy noted. Co nsistency is fibroglandular. Abdominal: Soft. Bowel sounds are normal. She exhibits no distension and no mass. There is no tenderness. Genitourinary: Genitourinary Comments: Pelvic exam deferred Musculoskeletal: She exhibits no edema. Lymphadenopathy: She has no cervical adenopathy. Neurological: She is alert and oriented to person, place, and time. Psychiatric: She has a normal mood and affect. Judgment normal. Pleasant, cooperative, great historian Assessment / Plan: 1. Encounter for other contraceptive management Brief exam-normal Pt declines need for STD screening today Discussed other contraceptive options. She is not interested in IUD. She is overall doing w ell on extended dose Oc's, but would be interested in adjusting to possibly resolve the spot ting. I discussed changing to regular low dose SEASONIQUE instead of LO SEASONIQUE. She is a mcfarland that it may take several months to know if the spotting will resolve. She would like to attempt a change. New Rx sent to [facility] for SEASONIQUE. She can transition over at any t edwina, or finish her current package. However, she has 9-10 weeks left as she just started th is packet a couple weeks ago. She will think about the option I have encouraged continued use of condoms. Follow up prn or in a year for an annual examin this encounter Plan of Treatment Not on fileas of this encounter Visit Diagnoses + + | Diagnosis | + + | Encounter for other contraceptive management - Primary | + +
--- OUTSIDE RECORDS SUMMARY | 2017-08-23 14:50 | XMS | Encounter Summary ---
Demographics + + + | Address | [address] | | | [place] [address] | + + + | Home Phone | | + + + | Preferred Language | Unknown | + + + | Marital Status | Single | + + + | Synagogue Affiliation | Unknown | + + + | Race | Unknown | + + + | Ethnic Group | Unknown | + + + Author + + + | Author | [facility] | | | and [place] | + + + | Organization | [facility] | | | and [place] [...] [place] | | | | | [address] | | + + + + + Care Team Providers + +------+ + | Care Precision Grinder External Name | Role | Phone | + +------+ + | dEuard Rockwell MD | PCP | | + +------+ + Reason for Visit + + + | Reason | Comments | + + + | Nausea | | + + + | Headache (Adult - | | | New Onset Or New | | | Symptoms) | | + + + Encounter Details +--------+ + + + + | Date | Type | Department | Care Team | Description | +--------+ + + + + | 05/28/ | Emergency | [facility] | Randy Mcneal, | Acute non-recurrent | | 2018 | | [facility] | 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 [address] | maxillary sinusitis | | | | CENTER [address] | [place] | (Primary Dx); Viral | | | | [place] | [address] | gastroenteritis | | | | [address] | | | | | | [phone] | | | +--------+ + + + [...] + + + | Blood Pressure | 100/66 | 05/28/20171444 PST | + + + + | Pulse | 122 | 05/28/20171444 PST | + + + + | Temperature | 37.3 C (99.1 F) | 05/28/20171444 PST | + + + + | Respiratory Rate | 18 | 05/28/20171444 PST | + + + + | Oxygen Saturation | 95% | 05/28/20171444 PST | + + + + | Inhaled Oxygen | - | - | | Concentration | | | + + + + | Weight | 56.7 kg (125 lb) | 05/28/20171444 PST | + + + + | Height | 160 cm (5' 3") | 05/28/20171444 PST | + + + + | Body Mass Index | 22.14 | 05/28/2017 1445 PST | + + + + in this encounter Discharge Instructions Randy Mcneal NP - 05/28/2017Treat symptoms with bhkg-nlc-emfzwvx medications such as p seudoephedrine unless history of hypertension, Tylenol, oral antihistamines (Claritin, Zyrte c, Halima) and NSAIDs. Encouraged nasal saline rinses. Start on Flonase. Increase hydrat ion, and get adequate rest. Avoid smoking, or exposure to secondhand smoke. Humidifier oka y to use. If symptoms persist over 10 days, fever over 101, or severe sinus pain over 3-4 d ays, notify primary care provider or return to ED. The following attachments cannot be sent through Care Everywhere.Sinusitis, Acute (Occitan) in this encounter Medications at Time of Discharge + + +--------+---------+ + + | Medication | Sig. | Disp. | Refills | Start | End Date | | | | | | Date | | + + +--------+---------+ + + | CAMRESE LO | Take 1 tablet by | | 0 | 12/20/19 | | | 0.1-0.02 & 0.01 MG | mouth Daily. | | | 17 | 8 | | TABS | | | | | | + + +--------+---------+ + + | pseudoePHEDrine | Take 1 tablet by | 20 | 0 | 05/28/19 | | | (SUDOGEST) 30 mg | mouth every 6 hours | tablet | | 18 | 8 | | tablet | as needed for | | | | | | | Congestion for up to | | | | | | | 5 days. | | | | | + + +--------+---------+ + + as of this encounter Plan of Treatment Not on fileas of this encounter Visit Diagnoses + + | Diagnosis | + + | Acute non-recurrent maxillary sinusitis - Primary | + + | Viral gastroenteritis | + + | Intestinal infection due to other organism, not elsewhere classified | + +
--- OUTSIDE RECORDS SUMMARY | 2017-08-23 14:50 | XMS | Encounter Summary ---
Demographics + + + | Address | [address] | | | [place] [address] | + + + | Home Phone | | + + + | Preferred Language | Unknown | + + + | Marital Status | Single | + + + | Latter-Day Affiliation | Unknown | + + + | Race | Unknown | + + + | Ethnic Group | Unknown | + + + Author + + + | Author | [facility] | | | and [place] | + + + | Organization | [facility] | | | and [place] | + + + | Address | Unknown | + + + | Phone | Unavailable | + + + Support + + + + + | Name | Relationship | Address | Phone | + + + + + | Renu Benoit | ECON | [address] | | | | | [place] | | | | | [address] | | + + + + + Care Team Providers + +------+ + | Care File Clerk Name | Role | Phone | + +------+ + | Eduard Rockwell MD | PCP | | + +------+ + Reason for Visit + + + | Reason | Comments | + + + | Follow-up | | + + + Encounter Details +--------+ + + + + | Date | Type | Department | Care Team | Description | +--------+ + + + + | 05/30/ | Telephone | [facility] | Eduard Rockwell | Follow-up | | 2018 | | [facility] | MD [address]rae [address] | | | | | C[address] | [place] | | | | | [address] [place] | [place] [address] | | | | | [address] | [phone] | | | | | [phone] | | | +--------+ + + + [...]
--- OUTSIDE RECORDS SUMMARY | 2017-08-23 14:50 | XMS | Encounter Summary ---
Demographics + + + | Address | [address] | | | [place] [address] | + + + | Home Phone | | + + + | Preferred Language | Unknown | + + + | Marital Status | Single | + + + | Mu-Ism Affiliation | Unknown | + + + | Race | Unknown | + + + | Ethnic Group | Unknown | + + + Author + + + | Author | [facility] | | | and [place] | + + + | Organization | [facility] | | | and [place] | + + + | Address | Unknown | + + + | Phone | Unavailable | + + + Support + + + + + | Name | Relationship | Address | Phone | + + + + + | Renu Benoit | ECON | [address] | | | | | [place] | | | | | [address] | | + + + + + Care Team Providers + +------+ + | Care News Broadcaster Name | Role | Phone | + [...] | 2018 | | HOSPITAL EM[facility]Y | MIDWIFE PRACTITIONER [address] | abdominal pain | | | | CENTER [address] | [place] | (Primary Dx) | | | | [place] | [address] | | | | | [address] | | | | | | [phone] | | | +--------+ + + + [...] + | Urine - Urine, clean | [facility] [address] [facility] [place], | | catch | [place] [address] | + + + Urinalysis with Microscopic [...] | + + + + | Specific [place] | 1.015 | 1.003 - 1.030 | [...] + | Urine - Urine, clean | [facility] [address] [facility] | | catch | [place] [address] | + + + Lipase (07/12/20171119) + +-------+ + | Component | Value | Ref Range | + +-------+ + | LIPASE | 187 | 73 - 393 U/L | + +-------+ + + + + | Specimen | Performing Laboratory | + + + | Blood | [facility] [address] [place], | | | [place] [address] | + + + Comprehensive Metabolic Panel [...] GLOMERULAR FILTRATION | >=60 mL/min/1.73m2 | | [place] | RATE,ESTIMATED mL/min/1.47q5Npll than | | | | 60 Chronic [...] | + + + | Blood | [facility] [address] [facility] | | | [place] [address] | + + + CBC with Differential [...] | + + + | Blood | [facility] [address] [place], | | | [place] [address] | + + + in this encounter Visit Diagnoses + + | Diagnosis | + + | Right lower quadrant abdominal pain - Primary | + + | Abdominal pain, right lower quadrant | + +
--- OUTSIDE RECORDS SUMMARY | 2017-08-23 14:51 | XMS | Encounter Summary ---
Demographics + + + | Address | [address] | | | [place] [address] | + + + | Home Phone | | + + + | Preferred Language | Unknown | + + + | Marital Status | Single | + + + | Mormonism Affiliation | Unknown | + + + | Race | Unknown | + + + | Ethnic Group | Unknown | + + + Author + + + | Author | [facility] | | | and [place] | + + + | Organization | [facility] | | | and [place] | + + + | Address | Unknown | + + + | Phone | Unavailable | + + + Support + + + + + | Name | Relationship | Address | Phone | + + + + + | Renu Benoit | ECON | [address] | | | | | [place] | | | | | [address] | | + + + + + Care Team Providers + +------+ + | Care Brew House Supervisor Name | Role | Phone | + [...] | 2018 | | 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
--- OUTSIDE RECORDS SUMMARY | 2017-08-23 14:51 | XMS | Encounter Summary ---
Demographics + + + | Address | [address] | | | [place] [address] | + + + | Home Phone | | + + + | Preferred Language | Unknown | + + + | Marital Status | Single | + + + | Scientologist Affiliation | Unknown | + + + | Race | Unknown | + + + | Ethnic Group | Unknown | + + + Author + + + | Author | [facility] | | | and [place] | + + + | Organization | [facility] | | | and [place] | + + + | Address | Unknown | + + + | Phone | Unavailable | + + + Support + + + + + | Name | Relationship | Address | Phone | + + + + + | Renu Benoit | ECON | [address] | | | | | [place] | | | | | [address] | | + + + + + Care Team Providers + +------+ + | Care Car Restorer Name | Role | Phone | + [...] | | [address] [place] | [place] [address] | | | | | [address] | [phone] | | | | | [phone] | | | +--------+ + + + [...]
--- OUTSIDE RECORDS SUMMARY | 2017-08-23 14:51 | XMS | Encounter Summary ---
Demographics + + + | Address | [address] | | | [place] [address] | + + + | Home Phone | | + + + | Preferred Language | Unknown | + + + | Marital Status | Single | + + + | Methodist Affiliation | Unknown | + + + | Race | Unknown | + + + | Ethnic Group | Unknown | + + + Author + + + | Author | [facility] | | | and [place] | + + + | Organization | [facility] | | | and [place] | + + + | Address | Unknown | + + + | Phone | Unavailable | + + + Support + + + + + | Name | Relationship | Address | Phone | + + + + + | Renu Benoit | ECON | [address] | | | | | [place] | | | | | [address] | | + + + + + Care Team Providers + +------+ + | Care Vein Pumper Name | Role | Phone | + [...] Viral | | 2018 | Visit | [facility] | Matt, PHYSICAL TRAIN[address] | gastroenteritis | | | | [facility] | [address] [facility], | (Primary Dx); Viral | | | | [address] [facility], | [place] [address] | URI | | | | [place] [address] | [phone] | | | | | [phone] | | | +--------+---------+ + + + [...] with soap and water or use alcohol-based senior drafter to prevent the spread of infection. Wash your hands after touching anyone who is sick. Wash your hands or use alcohol-based senior drafter after using the toilet and before meals. Clean the toilet after each use. Remember these tips when preparing food: People with diarrhea should not prepare or serve foodto others. When preparing foods, wash your hands before and after. Wash your hands after using cutting boards, countertops, knives, or utensilsthat have been in contact with raw food. Keep uncooked meats away from cooked and pvlxi-bi-dky foods. Medicine You may use acetaminophen or [...] only as directed. Do not ta ke fhqt-tdv-frhpexf medicines for vomiting or diarrhea unless instructed [...] fever medicine New rash Date Last Reviewed: 05/19/201519996745-3870 [employer]. [address] [place] [address]. All righ ts reserved. This information is [...] illness and when to return for add formerly [facility] care. Patient verbalized understanding of the teaching. [...]
--- OUTSIDE RECORDS SUMMARY | 2017-08-23 14:51 | XMS | Encounter Summary ---
Demographics + + + | Address | [address] | | | [place] [address] | + + + | Home Phone | | + + + | Preferred Language | Unknown | + + + | Marital Status | Single | + + + | Bahai Affiliation | Unknown | + + + | Race | Unknown | + + + | Ethnic Group | Unknown | + + + Author + + + | Author | [facility] | | | and [place] | + + + | Organization | [facility] | | | and [place] | + + + | Address | Unknown | + + + | Phone | Unavailable | + + + Support + + + + + | Name | Relationship | Address | Phone | + + + + + | Renu Benoit | ECON | [address] | | | | | [place] | | | | | [address] | | + + + + + Care Team Providers + +------+ + | Care Body Shop Technician Name | Role | Phone | [...] | Dx) | | | | [place] [address] | [address] | | | | | [phone] | [phone] | | | | | | | [...] with your healthcare provider. Date Last Reviewed: 07/15/201619991662-6690 [employer]. [address] [place] [address]. All righ ts reserved. This information is [...] establish care and for contraceptive management. 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 She d oes not believe it has [...] attempt a change. New Rx sent to [facility] for SEASONIQUE. She can transition over at [...]
== END 2017-08-23 16:42 | disposition home or self-care (01) ==
LOC: ED 14:09
DX: R10.2 Pelvic and perineal pain (principal); Z88.0 Allergy status to penicillin; Z88.1 Allergy status to other antibiotic agents; Z79.899 Other long term (current) drug therapy
CPT/HCPCS: 76830; 76856; 80048; 81001; 84703; 85025; 99284